=== PATIENT | female | born 1970 | race Two or more races ===

== ENCOUNTER → 2024-10-11 | Outpatient (CLI) | payer MEDICAID, SELFPAY ==
--- NOTE | 2024-10-11 10:40 | XR_ITS ---
Examination: Bilateral hands, 6 views. Technique: AP, Oblique, Lateral each hand total 6 views Date and time of exam: October 11, 2024 1054 hrs. Indications: Bilateral knee pain one year Findings: No fracture or dislocation involving either hand No erosive or other significant arthritic change involving either hand No opaque foreign bodies Impression: No fracture or dislocation involving either hand No erosive or other significant arthritic change involving either hand
--- NOTE | 2024-10-11 10:40 | XR_ITS ---
Examination: Bilateral wrists 6 views Technique: AP oblique lateral each wrist total 6 views Exam date and time: 2024 1058 hrs. Indications: Bilateral wrist pain one year. Findings: Moderate osteopenia. Mild diffuse narrowing joints of the wrists bilaterally No erosive or other significant arthritic change No fractures or dislocations Impression: No erosive or other significant arthritic change
== END | disposition home or self-care (01) ==
LOC: CDIM 10:03
PROVIDERS: PCP Physician Assistant
DX: M25.562 Pain in left knee (principal); M25.561 Pain in right knee; M25.532 Pain in left wrist; M25.531 Pain in right wrist
CPT/HCPCS: 73110; 73130

== ENCOUNTER 2024-11-04 01:09 | Emergency (ER) | payer MEDICAID, SELFPAY ==
[2024-11-04 01:09] VITALS: BMI 29.6
[2024-11-04 01:14] VITALS: BP 164/72; PULSE 93; RESP 18; TEMP 36.4; O2SAT 98
--- NOTE | 2024-11-04 01:16 | EKG_ITS ---
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
--- NOTE | 2024-11-04 01:38 | XR_ITS ---
Examination: CT brain head without contrast. 2-D sagittal coronal reconstructions Date and time of exam:November 04, 2024 0223 hours INDICATIONS: Onset dizziness today CTDI: vol (mGy):52.6 DLP: (mGycm):988 Technique: Multiple CT axial sections of the brain have been obtained, 5 mm slice thickness. Contrast has not been administered. 2-D sagittal, coronal reconstructions have been obtained Low dose protocols were performed. One or more of the following dose reduction techniques were used; automated exposure control, adjustment of the mA and/or KV according to patient size, use of iterative reconstruction technique. Findings: No significant ventricular enlargement. Intra-axial or extra-axial hemorrhage density is not seen. No mass effect or midline shift Basal cisterns are not remarkable. Fourth ventricle is midline. Cranial vault intact. Impression: Negative for acute hemorrhage, mass effect or midline shift Advise clinical correlation and follow up accordingly
--- NOTE | 2024-11-04 01:39 | EDRME_ITS ---
Rapid Medical Screening Exam [facility] Arrival date/time: 11/04/24 01:09 54F with history of DM, HTN and HLD presents to ED with 1 day of dizziness and some N/V. Patient denies AMS, seizures, vision changes, weakness, numbness and confusion. Chief Complaint: Nausea/Vomiting/Diarrhea Vital signs: Vital Signs Temperature 97.6 F 11/04/24 01:14 Pulse Rate 93 11/04/24 01:14 Respiratory Rate 18 11/04/24 01:14 Blood Pressure 164/72 H 11/04/24 01:14 Pulse Oximetry (%) 98 11/04/24 01:14 Oxygen Delivery Method Room Air 11/04/24 01:14
[2024-11-04 01:55] LABS: Basophils % (Auto) 0 % (0-2.5); Eosinophils # (Auto) 0.1 Thou/mm3 (0.0-0.5); Eosinophils % (Auto) 1 % (0-10); Hematocrit 35.4 % (36.0-46.0); Hemoglobin 12.5 g/dL (12.0-16.0); Immature Granulocytes % (Auto) 0 % (0-0); Immature Granulocytes Auto 0.02 Thou/mm3 (0.00-0.00); Lymphocytes # (Auto) 2.5 Thou/mm3 (1.0-4.8); Lymphocytes % (Auto) 34 % (10-50); Mean Corpuscular HGB Conc 35.3 g/dl (31.0-37.0); Mean Corpuscular Hemoglobin 29.1 pg (25.0-35.0); Mean Corpuscular Volume 83 fL (80-100); Monocytes # (Auto) 0.6 Thou/mm3 (0.0-0.8); Monocytes % (Auto) 8 % (0-12); Neutrophils % (Auto) 56 % (37-80); Nucleated Red Blood Cell % 0 /100 WBC (0); Platelet Count 220 Thou/mm3 (140-440); RDW Standard Deviation 37.8 fL (36.4-46.3); Red Blood Count 4.29 Miln/mm3 (4.00-5.20); White Blood Count 7.2 Thou/mm3 (3.6-11.0)
[2024-11-04] MEDS: MECLIZINE HCL 25 MG TABLET PO (02:04)
[2024-11-04 02:12] LABS: Alanine Aminotransferase 43 U/L (10-49); Albumin, Serum 5.1 gm/dL (3.5-5.0); Alkaline Phosphatase 50 U/L (46-116); Anion Gap 12 (7-16); Aspartate Amino Transferase 42 U/L (0-34); BUN/Creatinine Ratio 18 Ratio (12-20); Bilirubin,Total 0.3 mg/dL (0.3-1.2); Blood Urea Nitrogen 18 mg/dL (9-23); Calcium 9.7 mg/dL (8.3-10.6); Calcium (Corrected) 9.7 mg/dL (8.5-10.1); Chloride 101 mMol/L (98-107); Globulin 2.5 gm/dL (2.3-3.5); Glucose 204 mg/dL (74-106); Osmolality,Calculated 285 (275-295); Potassium 3.9 mMol/L (3.4-5.1); Sodium 139 mMol/L (136-145); Total Protein 7.6 gm/dL (5.7-8.2); Troponin I < 0.002 ng/mL (0.0-0.045); eGFR > 60 See Note
[2024-11-04 03:17] LABS: Collection Type, Urine Clean Catch
[2024-11-04 03:22] LABS: Bilirubin,Urine Negative (Negative); Blood,Urine Negative (Negative); Clarity,Urine Clear (Clear/Hazy); Color,Urine Lt-Yellow (Lt Yel-Yel); Glucose, Urine Negative (Negative); Ketones,Urine Negative (Negative); Leukocyte Esterase,Urine Positive (Negative); Nitrite,Urine Negative (Negative); Protein,Urine Trace (Neg - Trace); RBC,Urine 4 /hpf (0-3); Specific Gravity,Urine 1.023 (1.001-1.035); Squamous Epithelial Cell,Urine 2 /hpf (0-5); Urobilinogen,Urine Negative mg/dL (0.0-1.0); WBC,Urine 12 /hpf (0-5)
--- NOTE | 2024-11-04 05:24 | PRELIM_ITS ---
CT scan of the head without intravenous contrast (axial sections with sagittal and coronal reformats) November 04, 2024 at 0222 hours Clinical History: Dizziness. Comparison: None. Findings: There is no evidence of intracranial hemorrhage, mass effect or midline shift. There is mild volume loss. The calvarium is unremarkable. The mastoid air cells and the visualized paranasal sinuses are clear. Impression: No evidence of intracranial hemorrhage, mass effect or midline shift. Mild volume loss. Aspect score 10. Report Electronically Signed By: Bola Lerner 11/04/2024 5:23:22 AM [EST]
[2024-11-04 06:23] VITALS: BP 146/77; PULSE 93; RESP 19; TEMP 36.6; O2SAT 97
--- NOTE | 2024-11-04 06:31 | PD.EDNV ---
Nausea/Vomit./Diarrhea-RME/HPI General Chief complaint: Nausea/Vomiting/Diarrhea Stated complaint: DIZZY, N/V SINCE 11PM Time Seen by Provider: 11/04/24 06:32 Arrival date/time: 11/04/24 01:09 Limitations: no limitations RME / HPI RME / HPI Narrative: 11/04/24 01:09 54F with history of DM, HTN and HLD presents to ED with 1 day of dizziness and some N/V. States pain in center of stomach but only with episode of nausea. No history of gallstones but did state last thing she ate yesterday was a hamburger. states no history of kidney stones or gallstones. No burning with urination. patient denies AMS, seizures, vision changes, weakness, numbness and confusion. Related Data Home Medications ?Medication ?Instructions ?Recorded ?Confirmed atorvastatin 40 mg tablet (Lipitor) 40 mg PO HS #0 tabs 07/29/15 11/14/21 lisinopril 40 mg tablet 40 ml PO QDAY #0 tabs 07/29/15 11/14/21 metformin 500 mg tablet 500 mg PO BIDAC #0 tabs 07/29/15 11/14/21 (Glucophage) Previous Rx's ?Medication ?Instructions ?Recorded cephalexin 500 mg capsule 500 mg PO BID 7 days #14 caps 11/04/24 ibuprofen 600 mg tablet (IBU) 600 mg PO Q6H #20 tabs 11/04/24 ondansetron 4 mg disintegrating 4 mg PO Q8H PRN nausea and 11/04/24 tablet vomiting #10 tabs Allergies Allergy/AdvReac Type Severity Reaction Status Date / Time Bee Stings Allergy Mild SWELL UP Uncoded 11/04/24 01:12 Review of Systems Review of Systems Systems Reviewed: All systems reviewed, normal except as documented Constitutional Constitutional: Denies fever(s) Gastrointestinal Gastrointestinal: Reports as per HPI and Reports vomiting Genitourinary Genitourinary: Denies difficulty voiding, Denies urinary incontinence and Denies urinary urgency Musculoskeletal Musculoskeletal: Denies limited range of motion ED Exam General Limitations: Present no limitations General appearance: Present alert and in no apparent distress Head Head exam: Present atraumatic Eye Eye exam: Present normal appearance, PERRL and EOMI Respiratory Respiratory exam: Present normal lung sounds bilaterally Cardiovascular Cardiovascular exam: Present regular rate, normal rhythm and normal heart sounds Abdominal Exam Abdominal exam: Present soft, tenderness and normal bowel sounds; Absent Monroy's sign Extremities Exam Extremities exam: Present normal inspection and full ROM Back Exam Back exam: Present normal inspection and full ROM Neurological Exam Neurological exam: Present alert and oriented X3 Psychiatric Psychiatric exam: Present normal affect and normal mood Skin Skin exam: Present warm, dry, intact and normal color Course Quality Measures none Orders Category Date Time Status Blood glucose [Bedside Blood Glucose] NOW Care 11/04/24 01:16 Completed EKG (ED ONLY) *Do not use* NOW Care 11/04/24 01:[address] head/brain wo con Stat Exams 11/04/24 01:38 Completed EKG (ED Only) Stat Exams 11/04/24 01:16 Draft US gall bladder Stat Exams 11/04/24 08:09 Completed US renal BI Stat Exams 11/04/24 06:46 Completed CBC Stat Lab 11/04/24 01:47 Completed Comprehensive Metabolic Panel Stat Lab 11/04/24 01:47 Completed Troponin I Stat Lab 11/04/24 01:47 Completed Urinalysis Stat Lab 11/04/24 03:04 Completed Meclizine HCl [Antivert] Med 11/04/24 01:38 Discontinued 25 mg PO X1 ONE Vital Signs Vital signs: Vital Signs Temperature 97.6 F 11/04/24 01:14 Pulse Rate 93 11/04/24 01:14 Respiratory Rate 18 11/04/24 01:14 Blood Pressure 164/72 H 11/04/24 01:14 Pulse Oximetry (%) 98 11/04/24 01:14 Oxygen Delivery Method Room Air 11/04/24 01:14 Procedures -ED EKG Interpretation #1: Date of EK11/04/24 Time of EK:00 Rate: 91 Interpretation: Interpreted by me EKG Impression: Normal sinus rhythm and No acute ST-T changes Additional EKG comment: No prior for comparison Nausea/Vomiting/Diarrhea MDM Narrative MDM Narrative:: Although differential is broad including possible cardiac workup is reassuring negative brain scan negative renal ultrasound hematuria possible from occult UTI of most significance was ultrasound showing gallstones discussed will need surgical referral and dietary changes. Verbalized understanding of plan advised follow-up with PCP return to ER if symptoms worsen Patient data External records reviewed:: [facility] previous records Clinical information provided by:: patient Social determinants that could affect healthcare access:: other (specify) (Encounter was performed in [place]ese to patient's comfort level with limited [place]) Patient has the following chronic illnesses:: High blood pressure and cholesterol How is presenting disease/condition affected by chronic disease/condition?: exacerbated by Evaluation data The following diagnostics were reviewed and interpreted by me:: lab results and radiology exam(s) Lab and/or radiology exams considered but not ordered:: CT scan was considered however machine was on delay and patient opted for other options. However ultrasound confirmed diagnosis that CT with also found Interpretation Summary: CBC CMP without significant findings UA did show hematuria but no bacteria however will treat for UTI, ultrasound of kidneys did not show hydronephrosis or stones, ultrasound of gallbladder did show gallstones Medications / Prescriptions Medications / Prescriptions considered but not ordered:: Narcotics were considered for home however opted against it due to potential side effects Medication administrations:: Medication Administration History Discontinued Medications Meclizine HCl (Meclizine Hcl 25 Mg Tablet) 25 mg PO X1 ONE Stop: 11/04/24 01:39 Last Admin: 11/04/24 02:04 Dose: 25 mg Documented By: EE Antiemetics given here resolved symptoms Consultations Consultation(s) initiated? (list below): No Diagnosis Nausea Differential Diagnosis: gastroenteritis, drug-induced nausea and vomiting and other (DKA, gallstones, [place]) Most likely diagnosis given after review of the tests above:: Gallstones causing nausea without obstruction Hematuria Dizziness likely from nausea Admission Indicated Admission indicated?: not indicated Admission Request Was there a request for admission?: No Disposition Plan Disposition Plan: Discharge Discharge Attestation Discharge Attestation: The patient and all family members were given an opportunity to ask questions and understood the discharge instructions. Discharge instructions specifically effects, indications for sooner follow up or return to the emergency department, and the expected course of current diagnosis. Patient condition: Stable Discharge Plan Plan Patient Disposition: HOME (Self Care) Disposition Comment: Follow-up with PCP in 2 to 3 days Prescriptions/Referrals Prescriptions/Med Rec: New ondansetron 4 mg tablet,disintegrating 4 mg PO Q8H PRN (Reason: nausea and vomiting) Qty: 10 0RF ibuprofen [IBU] 600 mg tablet 600 mg PO Q6H Qty: 20 0RF cephalexin 500 mg capsule 500 mg PO BID 7 Days Qty: 14 0RF No Action atorvastatin [Lipitor] 40 MG tablet 40 mg PO HS Qty: 0 metformin [Glucophage] 500 MG tablet 500 mg PO BIDAC Qty: 0 lisinopril 40 MG tablet 40 ml PO QDAY Qty: 0 Referrals: No Primary/Family,Physician [Primary Care Provider] - In 1 week Problem List Clinical Impression: Cholelithiasis, Vomiting, Dizziness, Diabetes, Hematuria Patient/Caregiver Discharge Instructions Education Materials: ED Gallstones with Biliary Colic, ED Hematuria Print Language: [place]ese Stand Alone Forms: Birgit Award Info., Patient Portal Info Letter PA/KNURLING MACHINE OPERATOR Supervising Physician PA/KNURLING MACHINE OPERATOR Supervising Physician: Dr. Barbour
--- NOTE | 2024-11-04 06:46 | XR_ITS ---
Examination: Retroperitoneal ultrasound, complete Technique: Multiple high resolution grayscale images of the retroperitoneum obtained, including kidneys and bladder. Exam date and time:November 04, 2024 0801 hrs. Indications: Hematuria flank pain and vomiting today Findings: Right kidney 10.7 cm renal cortex 1.2 cm Left kidney 10.6 cm renal cortex 1.2 cm Mild left renal parenchymal scar formation. No renal calculi Contracted urinary bladder Impression: Bilateral renal cortical thinning. Mild left renal parenchymal scar formation. No renal calculi or hydronephrosis
--- NOTE | 2024-11-04 08:09 | XR_ITS ---
Examination: Abdomen sonogram, Limited Date and time of exam: November 04, 2024, 0811 hrs. Indications: Abdominal pain and vomiting beginning today Technique: Real-time cross scale transabdominal sonographic images of the upper abdomen obtained. Findings: Multiple gallstones Normal gallbladder wall Common bile duct 0.7 cm no stones Pancreatic head 2.1 cm Liver 18.7 cm fatty infiltration no focal liver lesions Normal hepatopedal portal venous flow Patent IVC Impression: Cholelithiasis
== END 2024-11-04 10:10 | disposition home or self-care (01) ==
PROVIDERS: Physician Assistant; Emergency Provider Emergency Medicine
DX: K80.20 Calculus of gallbladder without cholecystitis without obstruction (principal); N39.0 Urinary tract infection, site not specified; R42 Dizziness and giddiness; R31.9 Hematuria, unspecified; I10 Essential (primary) hypertension; E78.5 Hyperlipidemia, unspecified
CPT/HCPCS: 36415; 70450; 76705; 76770; 80053; 81001; 84484; 85025; 93005; 99284; A9270